=== PATIENT | male | born 1995 | race Hispanic/Latino ===

== ENCOUNTER → 2020-12-18 | Outpatient (CLI) | payer OTHER ==
--- NOTE | 2020-12-18 12:09 | REPVR ---
PROCEDURE INFORMATION: Exam: MR Head Without Contrast Exam date and time: 12/18/2020 9:45 AM Age: 25 years old Clinical indication: Pain; Headache not specified; Additional info: Headaches TECHNIQUE: Imaging protocol: MR of the head without contrast. COMPARISON: No relevant prior studies available. FINDINGS: Brain: There is no extra-axial collection or intra-axial mass. Normal parenchymal signal is preserved. There is no diffusion restriction. Cerebral ventricles: Normal. No ventriculomegaly. Bones/joints: Unremarkable. Paranasal sinuses: There is mild mucosal thickening along the floors of the maxillary sinuses. Mastoid air cells: Normal as visualized. No mastoid effusion. Orbital cavity: Unremarkable. Soft tissues: Unremarkable. IMPRESSION: No acute findings. Electronically signed by: Jessica Campbell On 12/18/2020 12:09:22 PM
== END ==
LOC: M PLARAD 08:48
PROVIDERS: ATTEND Nurse Practitioner Family
DX: R51.9 Headache, unspecified (principal)

== ENCOUNTER 2021-12-21 22:56 | Emergency (ER) | payer OTHER ==
[~2021-12-21] VITALS: Ht 177.8 cm; Wt 72.7 kg
[2021-12-21 22:56] VITALS: BP 127/96
[~2021-12-21 22:56] MED LIST: BUSP-29 PO
== END 2021-12-22 01:20 | disposition left against medical advice (07) ==
LOC: M ED 12-22 00:45
DX: Z53.21 Procedure and treatment not carried out due to patient leaving prior to being seen by health care provider (principal)

== ENCOUNTER 2024-12-03 23:14 | Emergency (ER) | payer OTHER ==
[~2024-12-03] VITALS: Ht 177.8 cm; Wt 75.0 kg
[~2024-12-03 23:14] MED LIST changes: -BUSP-29 PO; +BUSP10TA79 PO
[2024-12-04] MEDS ORDERED: AMOX875T2 PO (01:26)
[2024-12-04] MEDS: AUGMENTIN 875 MG TAB PO ONE (01:31)
[2024-12-04] MEDS: PERCOCET 5MG/325MG TAB PO ONE (01:32)
[2024-12-04] MEDS: BOOSTRIX VACCINE (TETANUS/DIPHTH/ACEL. PERTUSSIS) 0.5ML SYR IM.IMMUN ONE (01:34)
[2024-12-04] MEDS: LIDOCAINE 1% MDV 20ML VIAL SC ONE (01:55)
[2024-12-04 02:40] VITALS: BP 124/61; TEMP 96.8; O2SAT 99
[2024-12-04] MEDS: IBUPROFEN 600MG TAB PO ONE (02:50)
== END 2024-12-04 03:08 | disposition home or self-care (01) ==
LOC: M ED 23:14
DX: S61.451A Open bite of right hand, initial encounter (principal); W54.0XXA Bitten by dog, initial encounter; F17.200 Nicotine dependence, unspecified, uncomplicated; F10.10 Alcohol abuse, uncomplicated; F12.10 Cannabis abuse, uncomplicated; Y92.009 Unspecified place in unspecified non-institutional (private) residence as the place of occurrence of the external cause; Y93.89 Activity, other specified; Y99.9 Unspecified external cause status; Z79.2 Long term (current) use of antibiotics; Z79.899 Other long term (current) drug therapy

== ENCOUNTER 2025-09-11 20:45 | Emergency (ER) | payer OTHER ==
[~2025-09-11] VITALS: Ht 177.8 cm; Wt 72.0 kg
[~2025-09-11 20:45] MED LIST changes: +AMOX875T2 PO; +BENZ200C70 PO; +PRED20TA PO
[2025-09-11] MEDS: BENZONATATE 100 MG CAPSULE PO ONE (21:28)
[2025-09-11] MEDS: dexAMETHasone 4 MG/ML 1 ML VIAL PO ONE (21:29)
[2025-09-11] MEDS: LEVALBUTEROL 1.25 MG 0.5ML CONCENTRATE NEB NEB ONE (21:35)
[2025-09-11] MEDS ORDERED: BENZ200C70 PO (22:23)
[2025-09-11 22:35] VITALS: BP 117/64; TEMP 98.1; O2SAT 95
== END 2025-09-11 22:36 | disposition home or self-care (01) ==
LOC: M ED 20:45
DX: J45.901 Unspecified asthma with (acute) exacerbation (principal); F41.9 Anxiety disorder, unspecified; Z79.52 Long term (current) use of systemic steroids; Z79.899 Other long term (current) drug therapy
CPT/HCPCS: 71046; 87486; 87581; 87633; 87798; 94640; 99283; J1100